=== PATIENT | female | born 1950 | race Caucasian/White ===

== ENCOUNTER 2016-10-01 06:17 | Inpatient (IN) ==
[2016-10-01] MEDS ORDERED: *HR* Propofol 200 MG/20 ML VIAL IVP ONE (06:32)
[2016-10-01] MEDS ORDERED: *HR* FentaNYL (PF) 100 MCG/2 ML VIAL ONE (06:32)
[2016-10-01] MEDS ORDERED: *HR* Midazolam HCl 2 MG/2 ML VIAL ONE (06:32)
[2016-10-01] MEDS ORDERED: *HR* Rocuronium Bromide 50 MG/5 ML VIAL ONE (06:41)
[2016-10-01] MEDS ORDERED: *HR* Phenylephrine 10 MG/ML VIAL ONE (06:41)
[2016-10-01] MEDS ORDERED: *HR* Succinylcholine 200 MG/10 ML VIAL IVP ONE (06:41)
[2016-10-01] MEDS ORDERED: Lidocaine -MPF 2% 2 ML VIAL ONE (06:41)
[2016-10-01] MEDS ORDERED: Dexamethasone 4 MG/ML VIAL ONE (06:41)
[2016-10-01] MEDS ORDERED: Ondansetron 4 MG/2 ML VIAL ONE (06:41)
[2016-10-01] MEDS ORDERED: Lidocaine -MPF 4% 5 ML AMPUL ONE (06:44)
[2016-10-01] MEDS ORDERED: CeFAZolin Pre 2,000 MG/100 ML 2,000 MG/100 ML BAG IVPB ONE (06:47)
[2016-10-01] MEDS ORDERED: Lidocaine 1% 20 ML MDV ID ONE (06:47)
[2016-10-01] MEDS ORDERED: Albuterol 2.5 MG/3 ML NEBULIZER IH ONE (06:49)
[2016-10-01] MEDS ORDERED: Albuterol 2.5 MG/3 ML NEBULIZER ONE (06:51)
[2016-10-01] MEDS ORDERED: *HR* Remifentanil 1 MG VIAL IVP ONE ×3 (06:54→10:21)
[2016-10-01] MEDS ORDERED: Ringers Solution, Lactated 1,000 ML IVC SCH (07:00)
[2016-10-01] MEDS ORDERED: Famotidine 20 MG/2 ML VIAL IVP ONE (07:20)
--- NOTE | 2016-10-01 07:24 | Anesthesia Evaluation PreOp ---
Date of Encounter: 10/01/16 Time of Encounter: 07:20 - Past History Planned Operation: Posterior Lumbar Fusion Cardiac History: HTN, Hyperlipidemia Pulmonary History: Smoker BRIM MOLDER History: Denies Any Significant HX Other Medical History: Other (Obese) Anesthesia History: No Prior Anesthetic Complications : No Medications and Allergies Duloxetine [Cymbalta] 30 mg PO BID 10/01/16 [History] HYDROcodone/Acet 7.5/325 mg [[place] 7.5-325 mg] 1 tab PO Q8H PRN 10/01/16 [ History] Hydrochlorothiazide 25 mg PO DAILY 10/01/16 [History] Potassium Chloride [K-Tab ER] 20 meq PO DAILY 10/01/16 [History] Allergies bupropion [From Zyban] Allergy (Verified 10/01/16 06:55) Anaphylaxis celecoxib [From Celebrex] Allergy (Verified 10/01/16 06:55) See Comments patient unsure of reaction pravastatin Allergy (Verified 10/01/16 06:55) See Comments legs hurt, kidney pain, incontinence tramadol Allergy (Verified 10/01/16 06:55) Hallucinating atorvastatin [From Lipitor] Adverse Reaction (Verified 10/01/16 06:55) Muscle Pain Diclofenac Adverse Reaction (Verified 10/01/16 06:55) Dizziness lisinopril Adverse Reaction (Verified 10/01/16 06:55) Cough - Meds/Allergy Pre-op Review Medications Reviewed: Yes Allergies Reviewed: Yes Beta Blockers on Current Med List: No Anesthesia Results - Labs Laboratory Tests 09/13/16 09/13/16 09:55 09:55 Hgb 15.9 H Hct 48.4 H Sodium 139 Potassium 3.6 BUN 9 Creatinine 0.73 - Imaging EKG: report reviewed (SR) Anesthesia Exam O2 Sat Height 1.59 m Height 1.59 m Height 1.59 m Weight 91.172 kg Weight 91.172 kg Weight 91.172 kg O2 Sat by Pulse Oximetry 94 O2 Sat by Pulse Oximetry 94 Vital Signs Temp Pulse Resp BP Pulse Ox 98.5 F 89 18 147/91 94 L 10/01/16 06:36 10/01/16 06:36 10/01/16 06:36 10/01/16 06:36 10/01/16 06:36 Height: 5'3 Weight: 200 lbs NPO (# of Hours): MN Pain Scale: 1 - HEENT Pupil (Motor): Pupils equal, EOMI Mallampati: II Teeth: Normal Oral Opening: Greater than 3 - BRIM MOLDER LOC: Oriented BRIM MOLDER Motor: Normal RUE, Normal LUE, Normal RLE, Normal LLE, Normal Face BRIM MOLDER Sensory: Normal: RUE, LUE, RLE, LLE, Face - Cardiac Rhythm: Regular Murmur: None JVD: No Carotid Bruit: No - Pulmonary Breath Sounds: bilateral Clear Respiratory Effort: Symmetrical Anesthesia Assess/Plan ASA Score: 3 Modified [place] Scale for Level of Consciousness: Cooperative, oriented, and tranquil Anesthetic Plan: General Monitoring Plan: Standard Monitors Recovery Plan: PACU (Discussed GA with parents, agrees to proceed)
--- NOTE | 2016-10-01 07:34 | History & Physical Report ---
Date of Encounter: 10/01/16 Time of Encounter: 07:33 24 Hour HP Update - Instructions Instructions: If the History and Physical is less than 30 days old and was completed prior to A.M. admission and or procedure and has NOT been updated on calendar day of procedure please complete this update prior to performing procedure. - Update Patient reports changes in Medical Condition: No Changes in assessment/condition: No Changes in Medication: No Preop tests/diagnostics Reviewed: Yes Pre-Op MRSA Screen: Negative Surgery Remains Indicated: Yes Consent for Planned Operative Procedure(s) Verified: Yes - Pre-Operative Checklist Prophylactic Antibiotic Ordered: Yes Home Medications Include Beta Nadia: No Beta Nadia Taken Today (Day of Surgery): No Beta Nadia Taken Yesterday (Day Prior to Surgery): No Is VTE Prophylaxis Indicated?: Yes
[2016-10-01] MEDS ORDERED: Water for inj. (sterile) 10 ML IV ONE (08:19)
[2016-10-01] MEDS ORDERED: EPHEDrine 50 MG/ML VIAL ONE (08:19)
[2016-10-01] MEDS ORDERED: *HR* Labetalol 100 MG/20 ML MDV IVP PRN (08:34)
[2016-10-01] MEDS ORDERED: *HR* HYDROmorphone 2 MG/ML SYRINGE ONE (10:49)
--- NOTE | 2016-10-01 11:00 | Orthopedic Operative Note ---
Date of procedure: 10/01/16 Pre-op diagnosis: spondylolisthesis, lumbar stenosis Post-op diagnosis: same Operation/Findings: Posterior lumbar interbody fusion L4-L5: The patient successfully underwent general endotracheal anesthesia. The patient was given antibiotics prior to the start of the procedure. Compression boots and stockings were used for deep vein thrombosis prophylaxis. A Garcia catheter was placed. Leads for neuro monitoring were placed on the upper and lower extremities. This included the cranium. The neuro monitoring personnel confirmed there were satisfactory readings prior to the start of the procedure. The patient was turned prone on the Raymond table. The back was prepped and draped in the usual sterile fashion. An incision was was marked and centered over the involved L4 and L5 levels in the mid line. The incision was deepened through the lumbar fascia. Bovie cautery and Nelson elevators were used to reflect the paraspinal musculature at the lateral extent of the transverse processes of the involved L4 and L5 levels. Ashely clamps were placed over the spinous processes. An intraoperative lateral fluoroscopy graft was obtained. A conversation was held between the surgeon and radiologist and both confirmed we had the correct operative levels. We then placed pedicle screws in standard fashion with the aid of fluoroscopy and anatomic landmarks. Briefly a starter awl was used. A gearshift was subsequently used to enter the commercial airplane pilot hole via a transpedicular route into the vertebral body. The commercial airplane pilot hole was tapped with an undersized instrument, and subsequently two 6.5 x 40 mm pedicle screws were placed unilaterally on the left at the indicated levels. Concerns regarding screw placement caused us to omit right sided hardware. The screws were tested with the aid of the neurologic monitoring staff via pedicle screw stimulation. All reading suggested there was no significant cortical wall breech. The screws were also evaluated fluoro- graphically and appeared to be in satisfactory position. We then turned our attention to the decompression portion of the procedure. We removed the supraspinous and interspinous ligaments and subsequently the insertion of the ligamentum flavum on the undersurface of the proximal L4 lamina was dislodged with a curette. We then removed the ligamentum flavum as well as undercut the L4-L5 facets at this level to decompress the lateral recesses. We also performed a L4 laminectomy. After the decompression which was over and above that which was required to place the interbody graft, the foramen and traversing roots at this level were found to be free and patent. We also took part of the medial facets in order to aid in the decompression. We then protected the neural elements including the thecal sac and traversing nerve root on the right with a dural retractor. We made an annulotomy into the disc space and then removed entire disc material using lPituitary instruments. We trialed various size grafts after the endplates were prepared for graft insertion. A 10 x 26 enter body graft fit well within the L4-L5 disc space. We obtained some bone from the right posterior superior iliac spine through us a separate incision and combined with this with the bone which we had saved from the laminectomy portion of the procedure. This autograft bone was first placed in the anterior portion of the L4-L5 disc space and additional bone was placed within the interbody graft spacer. We then placed the interbody graft spacer obliquely across the disc space towards the midline while protecting the neural elements with a root retractor. When the graft was found to be in satisfactory position the elastic tape inserter was removed. We then copiously irrigated the wound. We then decorticated the transverse processes as well as the facet joints of the involved L4 and L5 levels to aid in the posterolateral fusion. We placed autograft bone in the lateral gutters over these regions. We then placed rods within the screw heads of the involved levels and first locked the distal screws and then subsequently locked the proximal screws so as to improve and reduce the spondylolisthesis previously seen. We then closed the wound in layers with 1 Vicryl for the fascia, 2-0 Vicryl. Subcutaneous tissue, and Dermabond was used for skin closure. Sterile dressings were placed over the wound. The patient was turned supine on a hospital bed and extubated. All sponge instruments and needle counts were correct at the end of the procedure. The patient tolerated the procedure well without complications. Anesthesia: GETA Surgeon: Christiano Juarez Jr Estimated blood loss (cc): 150 Condition: stable Disposition: PACU
[2016-10-01] MEDS: *HR* HYDROmorphone (PF) 1 MG/ML SYRINGE IVP PRN ×3 (11:26→11:54)
--- NOTE | 2016-10-01 12:10 | Anesthesia Evaluation Post Op ---
Date of Encounter: 10/01/16 Time of Encounter: 12:10 - Vital Signs Vital Signs: Vital Signs/O2 Sat/Glucose, Most Current Temp Pulse Resp BP Pulse Ox 10/01/16 12:06 97.3 F L 77 18 127/76 98 10/01/16 11:56 75 18 135/81 96 10/01/16 11:46 85 18 130/82 99 10/01/16 11:36 97.2 F L 83 18 138/86 98 10/01/16 11:26 93 20 135/86 98 10/01/16 11:16 89 20 138/76 100 10/01/16 11:06 98.2 F 70 16 142/82 100 - Lungs Lungs: Clear Ascult./Percussion - Airway Airway: Non-obstructed - Cardiovascular Regular Rate - Mental Status Mental Status: Alert & Oriented, Answers Appropriately - Pain Pain Scale: 0 - Nausea Vomiting Nausea Vomiting: Not Present - Hydration Hydration: Ice chips - Discharge PostOp Status: Transfer Patient to floor
[2016-10-01] MEDS ORDERED: Sennosides 8.6 MG TABLET PO PRN (14:20)
[2016-10-01] MEDS ORDERED: Naloxone 0.4 MG/ML INJ IVP PRN (14:20)
[2016-10-01] MEDS ORDERED: *HR* Morphine 2 MG/ML SYRINGE IVP PRN ×2 (14:20)
[2016-10-01] MEDS: ceFAZolin 2,000 MG in D5% in Water 100 ML IVPB SCH ×2 (16:33→23:16)
[2016-10-01] MEDS: Ringers Solution, Lactated 1,000 ML IVC SCH (19:23)
[2016-10-01] MEDS: *HR* OxyCODONE Immed Rel 5 MG TABLET PO PRN (20:28)
[2016-10-02] MEDS: Ringers Solution, Lactated 1,000 ML IVC SCH ×2 (02:31→20:14)
[2016-10-02] MEDS: *HR* OxyCODONE Immed Rel 5 MG TABLET PO PRN ×4 (05:30→20:11)
[2016-10-02 06:25] LABS: Basophils % 0.1 %; Hematocrit 36.3 % (35.3-44.9); Hemoglobin 12.1 g/dL (11.5-15.4); Immature Granulocytes % 0.8 % (0-4); Lymphocytes # 1.9 K/mcL (0.6-4.6); Lymphocytes % 16.2 %; Mean Corpuscular HGB Conc 33.3 g/dL (31.6-35.5); Mean Corpuscular Hemoglobin 29.9 pg (28.0-33.3); Mean Corpuscular Volume 89.6 fL (83.0-100.0); Mean Platelet Volume 9.6 fL (9.4-12.4); Monocytes # 1.3 K/mcL (0.0-1.3); Monocytes % 11.2 %; Neutrophils # 8.6 K/mcL (1.6-8.9); Platelet Count 269 K/mcL (140-400); Red Blood Count 4.05 M/mcL (3.82-4.97); Red Cell Distribution Width 12.5 % (11.5-14.5); Segmented Neutrophils % 71.7 %
[2016-10-02 06:38] LABS: BUN/Creatinine Ratio 12 (6-26); Blood Urea Nitrogen 8 mg/dL (7-20); Carbon Dioxide 26 mEq/L (19-29); Chloride 102 mEq/L (98-109); Glucose 99 mg/dL (70-99); Osmolality,Calculated 284 (280-300); Potassium 3.7 mEq/L (3.5-4.5); Sodium 138 mEq/L (136-145); eGFR For African Americans > 60 (> 60); eGFR For Non-African Americans > 60 (> 60)
[2016-10-02] MEDS: hydroCHLOROthiazide 25 MG TABLET PO SCH (07:58)
[2016-10-03] MEDS: *HR* OxyCODONE Immed Rel 5 MG TABLET PO PRN ×3 (00:12→13:53)
[2016-10-03] MEDS: hydroCHLOROthiazide 25 MG TABLET PO SCH (09:12)
[2016-10-03] MEDS: Ringers Solution, Lactated 1,000 ML IVC SCH (09:13)
--- NOTE | 2016-10-03 13:15 | Discharge Summary ---
Date of Encounter: 10/03/16 Time of Encounter: 13:13 - Discharge Diagnosis (1) Spondylolisthesis at L4-L5 level Priority: Primary Status: Chronic (2) Lumbar stenosis Priority: Secondary Status: Chronic - Discharge Medications Prescriptions: OxyCODONE Immed Rel [Roxicodone 5 MG] 5 mg PO Q4HR PRN #60 tablet PRN Reason: Severe Pain Home Medications: Duloxetine [Cymbalta] 30 mg PO BID 10/01/16 [History] HYDROcodone/Acet 7.5/325 mg [[place] 7.5-325 mg] 1 tab PO Q8H PRN 10/01/16 [ History] Hydrochlorothiazide 25 mg PO DAILY 10/01/16 [History] Potassium Chloride [K-Tab ER] 20 meq PO DAILY 10/01/16 [History] OxyCODONE Immed Rel [Roxicodone 5 MG] 5 mg PO Q4HR PRN #60 tablet 10/03/16 [Rx] Allergies/Adverse Reactions: Allergies bupropion [From Zyban] Allergy (Verified 10/01/16 06:55) Anaphylaxis celecoxib [From Celebrex] Allergy (Verified 10/01/16 06:55) See Comments patient unsure of reaction pravastatin Allergy (Verified 10/01/16 06:55) See Comments legs hurt, kidney pain, incontinence tramadol Allergy (Verified 10/01/16 06:55) Hallucinating atorvastatin [From Lipitor] Adverse Reaction (Verified 10/01/16 06:55) Muscle Pain Diclofenac Adverse Reaction (Verified 10/01/16 06:55) Dizziness lisinopril Adverse Reaction (Verified 10/01/16 06:55) Cough - Impressions ITS Impressions Lumbar Spine X-Ray 10/01/16 00:00 IMPRESSION: Postoperative changes from L4-5 posterior fusion. D/ / 10/01/2016 12:42:32 Huber Haas MD / [facility] Interpreting Provider: Huber Haas MD Date of admission: 10/01/16 12:30 Primary care physician: Wilder Espinoza MD Consults: 10/01/16 14:20 Consult to Occupational Therapy [CONS] Routine Comment: Evaluate, develop and implement POC Consult to Physical Therapy [CONS] Routine Comment: Evaluate, develop and implement POC Consult to Spine Navigator [CONS] [CONS] Routine - Patient Status Disposition: Home, Self-Care Condition: Good Functional capacity at discharge: uses cane/walker Overall status at discharge: patient is progressing back to baseline - Discharge Instructions Follow Up With: Wilder Espinoza MD [Primary Care Provider] - - Diet and Activity Activity: as per physical therapy Diet: advance to your usual diet - Hospital Course Hospital course: Ms. Anderson is a 65 year old female The patient had an uneventful postoperative course. Progressed from intravenous analgesic needs to oral analgesic needs only. Remained neurovascularly intact and mobilized satisfactorily. All intraoperative and/or postoperative radiographic studies were satisfactory. Patient is discharged with plan for rehabilitation and follow-up in 2 weeks post discharge on analgesic medication and patient's home medications. - Time Spent with Patient Total time spent providing and/or coordinating discharge services: - VTE Documentation of Mechanical Device: Intermittent pneumatic compression device
[2016-10-03 16:22] VITALS: BP 112/73
== END 2016-10-03 16:39 | disposition home or self-care (01) | DRG 460 ==
LOC: SAMDAY 06:17 → 3NENU 12:30
PROVIDERS: ADMIT Orthopaedic Surgery Orthopaedic Surgery of the Spine; ATTEND Orthopaedic Surgery Orthopaedic Surgery of the Spine